=== PATIENT | female | born 1950 | race Caucasian/White ===

== ENCOUNTER 2021-12-12 11:59 | Outpatient (CLI) | payer MEDICARE, BC | END 2021-12-12 12:00 | disposition home or self-care (01) | LOC: CSHLAB 11:59 | PROVIDERS: ATTEND Podiatrist | DX: Z20.822 Contact with and (suspected) exposure to COVID-19 (principal); M20.42 Other hammer toe(s) (acquired), left foot | CPT/HCPCS: 87811 ==

== ENCOUNTER 2021-12-14 10:03 | Day surgery (SDC) | payer MEDICARE, BC ==
[2021-12-12 13:14] VITALS: BMI 28.8
[~2021-12-14 10:03] MED LIST: Bupivacaine PF 0.5% 30 ML VIAL ONE; Lidocaine 2% 20 ml MDV ONE; Neomycin-Polymyxin 1 ML AMP ONE
[2021-12-14] MEDS ORDERED: Clindamycin/D5W 600 mg/50 ml Premix Bag ONE (12:01)
[2021-12-14] MEDS ORDERED: Fentanyl 100 MCG/2 ML VIAL ONE ×2 (12:02→12:46)
[2021-12-14] MEDS ORDERED: PROPOFOL 20 ML ONE (12:02)
[2021-12-14] MEDS ORDERED: Dexamethasone 4 mg/ml Vial ONE (12:04)
[2021-12-14] MEDS ORDERED: Ondansetron PF 4 MG/2 ML Vial ONE (12:04)
[2021-12-14] MEDS ORDERED: ePHEDrine Sulfate 50 MG/10 ML VIAL ONE (12:30)
[2021-12-14] MEDS ORDERED: Ketorolac Tromethamine 30 MG/ML VIAL ONE (12:31)
== END 2021-12-14 13:53 | disposition home or self-care (01) ==
LOC: CSHSDC 10:03
PROVIDERS: ATTEND Podiatrist
PROC: 0SGQ0JZ Fusion of Left Toe Phalangeal Joint with Synthetic Substitute, Open Approach (ICD-10-PCS; principal; 2021-12-14)
DX: M20.42 Other hammer toe(s) (acquired), left foot (principal); M25.775 Osteophyte, left foot; M79.675 Pain in left toe(s); E78.00 Pure hypercholesterolemia, unspecified; J45.909 Unspecified asthma, uncomplicated; I10 Essential (primary) hypertension; E03.9 Hypothyroidism, unspecified; K21.9 Gastro-esophageal reflux disease without esophagitis; Z20.822 Contact with and (suspected) exposure to COVID-19; Z79.899 Other long term (current) drug therapy
CPT/HCPCS: J1100; J1885; J2405; J2704; J3010; J3490; S0020